=== PATIENT | male | born 1990 | race Caucasian/White ===

== ENCOUNTER 2025-05-20 18:05 | Emergency (ER) | payer OTHER ==
[~2025-05-20] VITALS: Ht 182.9 cm; Wt 110.0 kg
[2025-05-20] MEDS ORDERED: MELATONIN5 M2 PO (18:31)
[2025-05-20] MEDS ORDERED: HYDROXYZINE HCL50 MG PO (18:32)
[2025-05-20 18:54] LABS: BASOPHILS 0.4 % (0.2-1.2); EOSINOPHILS 1.2 % (0.8-7.0); LYMPHOCYTES 45.8 % (21.8-53.1); MCH 29.5 PG (25.7-32.2); MCHC 34.7 g/dL (32.3-36.5); MCV 84.8 fL (79.0-92.2); MONOCYTES 8.2 % (5.3-12.2); NEUTROPHILS 44.3 % (34.0-67.9); RBC 4.75 M/uL (4.63-6.08)
[2025-05-20 19:10] LABS: ALT (SGPT) 26.0 U/L (14-59); AST (SGOT) 25.0 U/L (15-37); GLOMERULAR FILTRATION RATE,EST 103.0 mL/min (>60); PROTEIN, TOTAL 7.2 g/dL (6.4-8.2); UREA NITROGEN 25.0 mg/dL (7-18)
[2025-05-20] MEDS ORDERED: MORPHINE SULFATE 4 MG/ML VIAL IV ONE (20:15)
[2025-05-20 20:34] LABS: INR 1.05 (0.80-1.30); PROTIME 13.0 Sec (11.2-14.2)
[2025-05-20] MEDS ORDERED: LIDODERM1 EACH TOP (22:46)
[2025-05-20] MEDS ORDERED: CYCLOBENZAPRINE10 MG PO (22:46)
[2025-05-20] MEDS ORDERED: CYCLOBENZAPRINE HCL 10 MG HOME.PACK PO ONE (23:00)
[2025-05-20 23:18] VITALS: BP 103/57
== END 2025-05-20 23:21 | disposition home or self-care (01) ==
LOC: ED 18:05
PROVIDERS: Emergency Medicine; Family Medicine
DX: S30.0XXA Contusion of lower back and pelvis, initial encounter (principal); D69.6 Thrombocytopenia, unspecified; Z79.899 Other long term (current) drug therapy; W06.XXXA Fall from bed, initial encounter
CPT/HCPCS: 36415; 72080; 80053; 85025; 85610; J2270; J2405